=== PATIENT | female | born 1975 | race Caucasian/White ===

== ENCOUNTER 2017-12-07 14:08 | Emergency (ER) | payer MEDICAID ==
[~2017-12-07] VITALS: Ht 162.6 cm; Wt 81.0 kg
[~2017-12-07 14:08] MED LIST: ALB0.5UD IH; COM10T PO; DEPOPROVERA; LEVA15HF4 IH; SUMA25TA35 PO
[2017-12-07 14:14] VITALS: BP 120/79
[2017-12-07] MEDS ORDERED: DIPH-681 PO (15:37)
[2017-12-07] MEDS ORDERED: BENZ-16 PO (15:37)
[2017-12-07] MEDS ORDERED: ACTIFED PO (15:37)
[2017-12-07] MEDS ORDERED: AZIT500T5 PO (15:37)
== END 2017-12-07 15:52 | disposition home or self-care (01) ==
LOC: ER 14:09
DX: J06.9 Acute upper respiratory infection, unspecified (principal); G43.909 Migraine, unspecified, not intractable, without status migrainosus; J45.909 Unspecified asthma, uncomplicated; F17.200 Nicotine dependence, unspecified, uncomplicated; Z88.5 Allergy status to narcotic agent; Z56.0 Unemployment, unspecified; Z79.899 Other long term (current) drug therapy; Z98.890 Other specified postprocedural states
CPT/HCPCS: 99283

== ENCOUNTER 2018-05-02 11:36 | Emergency (ER) | payer MEDICAID ==
[~2018-05-02] VITALS: Ht 162.6 cm; Wt 77.3 kg
[~2018-05-02 11:36] MED LIST changes: +AZIT500T5 PO; +DIPH-681 PO
[2018-05-02] MEDS ORDERED: SUMAtriptan succ. 6 MG/0.5ml vial SQ ONE (13:35)
[2018-05-02] MEDS ORDERED: ondansetron 4mg rapidly disintigrating tab PO ONE (13:45)
[2018-05-02 14:44] VITALS: BP 134/84
== END 2018-05-02 14:45 | disposition home or self-care (01) ==
LOC: ER 11:37
DX: G43.909 Migraine, unspecified, not intractable, without status migrainosus (principal); J45.909 Unspecified asthma, uncomplicated; F17.200 Nicotine dependence, unspecified, uncomplicated; Z88.5 Allergy status to narcotic agent; Z79.899 Other long term (current) drug therapy; Z56.0 Unemployment, unspecified
CPT/HCPCS: 96372; 99283; J3030

== ENCOUNTER 2018-10-02 07:07 | Emergency (ER) | payer MEDICAID ==
[~2018-10-02] VITALS: Ht 162.6 cm; Wt 77.3 kg
[2018-10-02] MEDS ORDERED: piperacillin/tazo 3.375gm/50ml 50 ML IV ONE (07:15)
[2018-10-02] MEDS ORDERED: HYDROcodone/acetaminophen 10/325mg tab PO ONE (07:15)
[2018-10-02 07:56] LABS: BASOPHILS % (AUTO) 0.3 % (0-1); EOSINOPHILS # (AUTO) 0.1 X10'3 (0-0.9); EOSINOPHILS % (AUTO) 0.8 % (0-6); HEMATOCRIT 45.1 % (35.0-45.0); HEMOGLOBIN 14.9 g/dl (12.0-16.0); LYMPHOCYTES # (AUTO) 1.1 X10'3 (1.1-4.8); LYMPHOCYTES % (AUTO) 12.9 % (21-51); MEAN CORPUSCULAR HEMOGLOBIN 29.8 PG (27.0-31.0); MEAN CORPUSCULAR HGB CONC 33.1 g/dL (33.0-36.5); MEAN CORPUSCULAR VOLUME 90.2 FL (78-98); MEAN PLATELET VOLUME 8.6 FL (7.4-10.4); MONOCYTES # (AUTO) 0.3 X10'3 (0-0.9); MONOCYTES % (AUTO) 3.7 % (2-12); NEUTROPHILS # (AUTO) 6.9 X10'3 (1.8-7.7); NEUTROPHILS % (AUTO) 82.3 % (42-75); PLATELET COUNT 221 X10'3 (140-440); RED BLOOD COUNT 5.01 X10'6 (4.20-5.60); RED CELL DISTRIBUTION WIDTH 13.5 % (11.5-14.5); WHITE BLOOD COUNT 8.4 X10'3 (4.5-11.0)
[2018-10-02 08:03] LABS: ALANINE AMINOTRANSFERASE 44 U/L (12-78); ALBUMIN 3.7 G/DL (3.4-5.0); ALBUMIN/GLOBULIN RATIO 0.8 (1.1-1.5); ALKALINE PHOSPHATASE 77 IU/L (46-116); ANION GAP 14 (8-16); ASPARTATE AMINO TRANSFERASE 28 U/L (10-37); BILIRUBIN,TOTAL 0.3 MG/DL (0.1-1.0); BLOOD UREA NITROGEN 10 MG/DL (7-18); BUN/CREATININE RATIO 15.6 (6.6-38.0); CALCIUM 8.8 MG/DL (8.5-10.1); CHLORIDE 104 MMOL/L (99-107); CREATININE 0.64 MG/DL (0.40-0.90); GLUCOSE 113 MG/DL (70-104); SODIUM 141 MMOL/L (135-145); TOTAL CARBON DIOXIDE 22.8 MMOL/L (24-32); TOTAL PROTEIN 8.2 G/DL (6.4-8.2); eGFR > 90 ML/MIN
[2018-10-02 08:04] LABS: POTASSIUM 3.4 MMOL/L (3.5-5.1)
[2018-10-02] MEDS ORDERED: AMOX-422 PO (08:28)
[2018-10-02] MEDS ORDERED: HYDR-4353 PO (08:28)
[2018-10-02 08:52] VITALS: BP 144/98
== END 2018-10-02 08:54 | disposition home or self-care (01) ==
LOC: ER 07:08
DX: S62.021A Displaced fracture of middle third of navicular [scaphoid] bone of right wrist, initial encounter for closed fracture (principal); L08.9 Local infection of the skin and subcutaneous tissue, unspecified; G43.909 Migraine, unspecified, not intractable, without status migrainosus; J45.909 Unspecified asthma, uncomplicated; F17.200 Nicotine dependence, unspecified, uncomplicated; Z56.0 Unemployment, unspecified; Z98.890 Other specified postprocedural states; Z88.5 Allergy status to narcotic agent; Z79.899 Other long term (current) drug therapy; W22.01XA Walked into wall, initial encounter; Y93.89 Activity, other specified; Y92.89 Other specified places as the place of occurrence of the external cause; Y99.9 Unspecified external cause status
CPT/HCPCS: 29125; 36415; 73100; 73130; 80053; 85025; 96365; 99284; J2543

== ENCOUNTER 2018-10-11 08:40 | Emergency (ER) | payer MEDICAID ==
[~2018-10-11 08:40] MED LIST changes: +AMOX-422 PO; +HYDR-4353 PO
[2018-10-11 08:43] VITALS: BP 147/83
[2018-10-11] MEDS ORDERED: TETanus/Pertussis (Acell)/Diphther VAC/PF (Tdap-Adult) 0.5ml syringe IM ONE (09:25)
[2018-10-11] MEDS ORDERED: silver sulfadiazine cream 400gm jar TP SCH (09:25)
== END 2018-10-11 10:05 | disposition home or self-care (01) ==
LOC: ER 08:41
DX: S62.021D Displaced fracture of middle third of navicular [scaphoid] bone of right wrist, subsequent encounter for fracture with routine healing (principal); G43.909 Migraine, unspecified, not intractable, without status migrainosus; J45.909 Unspecified asthma, uncomplicated; F17.200 Nicotine dependence, unspecified, uncomplicated; Z56.0 Unemployment, unspecified; Z88.6 Allergy status to analgesic agent; X58.XXXD Exposure to other specified factors, subsequent encounter
CPT/HCPCS: 29125; 73130; 90471; 90715; 99284

== ENCOUNTER 2019-02-24 12:40 | Emergency (ER) | payer MEDICAID ==
[~2019-02-24] VITALS: Ht 162.6 cm; Wt 80.0 kg
[~2019-02-24 12:40] MED LIST changes: -AMOX-422 PO; -HYDR-4353 PO
[2019-02-24 12:48] VITALS: BP 141/90
[2019-02-24] MEDS ORDERED: CEPH-572 PO (13:38)
[2019-02-24] MEDS ORDERED: SULF1TAB49 PO (13:38)
== END 2019-02-24 14:04 | disposition home or self-care (01) ==
LOC: ER 12:41
DX: L02.11 Cutaneous abscess of neck (principal); L03.221 Cellulitis of neck; G43.909 Migraine, unspecified, not intractable, without status migrainosus; J45.909 Unspecified asthma, uncomplicated; Z86.2 Personal history of diseases of the blood and blood-forming organs and certain disorders involving the immune mechanism; Z98.890 Other specified postprocedural states; Z56.0 Unemployment, unspecified; Z88.5 Allergy status to narcotic agent; Z79.899 Other long term (current) drug therapy
CPT/HCPCS: 10060; 99283

== ENCOUNTER 2019-03-03 10:44 | Emergency (ER) | payer MEDICAID ==
[~2019-03-03] VITALS: Ht 162.6 cm; Wt 79.5 kg
[~2019-03-03 10:44] MED LIST changes: +CEPH-572 PO; +SULF1TAB49 PO
[2019-03-03 11:01] VITALS: BP 122/81
--- NOTE | 2019-03-03 12:46 | NUR ---
Pt seen, assessed, and treated by coty. Discharged instruction provided by myself.
== END 2019-03-03 12:52 | disposition home or self-care (01) ==
LOC: ER 10:45
DX: Z48.00 Encounter for change or removal of nonsurgical wound dressing (principal); L02.11 Cutaneous abscess of neck; G43.909 Migraine, unspecified, not intractable, without status migrainosus; J45.909 Unspecified asthma, uncomplicated; Z86.2 Personal history of diseases of the blood and blood-forming organs and certain disorders involving the immune mechanism; Z98.890 Other specified postprocedural states; Z56.0 Unemployment, unspecified; Z88.5 Allergy status to narcotic agent; Z79.899 Other long term (current) drug therapy
CPT/HCPCS: 99282

== ENCOUNTER 2020-01-28 15:34 | Emergency (ER) | payer MEDICAID ==
[~2020-01-28] VITALS: Ht 162.6 cm; Wt 68.1 kg
[~2020-01-28 15:34] MED LIST changes: -AZIT500T5 PO; +AZIT500T9 PO; -CEPH-572 PO; +DIPH25CA83 PO; -SULF1TAB49 PO
[2020-01-28 16:18] VITALS: BP 161/91
[2020-01-28] MEDS ORDERED: AMOX-419 PO (16:25)
== END 2020-01-28 16:33 | disposition home or self-care (01) ==
LOC: ER 15:35
DX: H66.91 Otitis media, unspecified, right ear (principal); J45.909 Unspecified asthma, uncomplicated; F17.200 Nicotine dependence, unspecified, uncomplicated; Z56.0 Unemployment, unspecified; Z98.890 Other specified postprocedural states; Z88.5 Allergy status to narcotic agent; Z79.2 Long term (current) use of antibiotics; Z79.899 Other long term (current) drug therapy
CPT/HCPCS: 99283

== ENCOUNTER 2020-06-09 12:16 | Emergency (ER) | payer MEDICAID ==
[~2020-06-09] VITALS: Ht 162.6 cm; Wt 89.4 kg
[2020-06-09] MEDS ORDERED: ibuprofen tablet 400 MG TABLET PO ONE (14:00)
[2020-06-09] MEDS ORDERED: ibuprofen 200mg tablet PO ONE (14:05)
[2020-06-09 14:15] VITALS: BP 136/87
== END 2020-06-09 14:17 | disposition home or self-care (01) ==
LOC: ER 12:17
DX: M79.671 Pain in right foot (principal); Z88.5 Allergy status to narcotic agent; Z79.899 Other long term (current) drug therapy
CPT/HCPCS: 73630; 99283

== ENCOUNTER 2020-06-16 11:37 | Emergency (ER) | payer MEDICAID ==
[~2020-06-16] VITALS: Ht 162.6 cm; Wt 86.5 kg
[2020-06-16] MEDS ORDERED: iohexol 300mg/ml 100ml inj. ONE (14:08)
[2020-06-16 14:26] LABS: BASOPHILS # (AUTO) 0.1 X10'3 (0-0.2); BASOPHILS % (AUTO) 0.6 % (0-1); EOSINOPHILS # (AUTO) 0.2 X10'3 (0-0.9); EOSINOPHILS % (AUTO) 1.7 % (0-6); HEMATOCRIT 40.1 % (35.0-45.0); HEMOGLOBIN 13.4 g/dl (12.0-16.0); LYMPHOCYTES # (AUTO) 2.1 X10'3 (1.1-4.8); MEAN CORPUSCULAR HEMOGLOBIN 29.7 PG (27.0-31.0); MEAN CORPUSCULAR HGB CONC 33.4 g/dL (33.0-36.5); MEAN CORPUSCULAR VOLUME 88.9 FL (78-98); MONOCYTES # (AUTO) 0.5 X10'3 (0-0.9); MONOCYTES % (AUTO) 5.3 % (2-12); NEUTROPHILS # (AUTO) 6.1 X10'3 (1.8-7.7); NEUTROPHILS % (AUTO) 68.4 % (42-75); PLATELET COUNT 246 X10'3 (140-440); RED BLOOD COUNT 4.51 X10'6 (4.20-5.60); RED CELL DISTRIBUTION WIDTH 13.5 % (11.5-14.5)
[2020-06-16 14:44] LABS: ALANINE AMINOTRANSFERASE 50 U/L (12-78); ALBUMIN 3.4 G/DL (3.4-5.0); ALBUMIN/GLOBULIN RATIO 0.7 (1.1-1.5); ALKALINE PHOSPHATASE 93 IU/L (46-116); ANION GAP 7 (8-16); ASPARTATE AMINO TRANSFERASE 29 U/L (10-37); BILIRUBIN,TOTAL 0.4 MG/DL (0.1-1.0); BLOOD UREA NITROGEN 8 MG/DL (7-18); BUN/CREATININE RATIO 13.1 (6.6-38.0); CALCIUM 9.2 MG/DL (8.5-10.1); CHLORIDE 102 MMOL/L (99-107); CREATININE 0.61 MG/DL (0.40-0.90); GLUCOSE 86 MG/DL (70-104); POTASSIUM 3.4 MMOL/L (3.5-5.1); SODIUM 137 MMOL/L (135-145); TOTAL CARBON DIOXIDE 27.9 MMOL/L (24-32); TOTAL PROTEIN 8.4 G/DL (6.4-8.2); eGFR > 90 ML/MIN
[2020-06-16 15:02] VITALS: BP 131/90
[2020-06-16] MEDS ORDERED: sulfamethoxazole/trimethoprim DS (800/160mg) tablet PO ONE (15:05)
[2020-06-16] MEDS ORDERED: cephalexin 250mg capsule PO ONE (15:05)
[2020-06-16] MEDS ORDERED: CEPH500C5 PO (15:15)
[2020-06-16] MEDS ORDERED: SULF1TAB49 PO (15:15)
[2020-06-16] MEDS ORDERED: IBUP-1985 PO (15:28)
== END 2020-06-16 15:32 | disposition home or self-care (01) ==
LOC: ER 11:37
DX: L03.90 Cellulitis, unspecified (principal); G43.909 Migraine, unspecified, not intractable, without status migrainosus; J45.909 Unspecified asthma, uncomplicated; D64.9 Anemia, unspecified; F17.200 Nicotine dependence, unspecified, uncomplicated; Z88.5 Allergy status to narcotic agent; Z79.899 Other long term (current) drug therapy
CPT/HCPCS: 36415; 80053; 84145; 85025; 99283; Q9967

== ENCOUNTER 2021-09-06 08:55 | Emergency (ER) | payer MEDICAID ==
[~2021-09-06] VITALS: Ht 172.7 cm; Wt 90.0 kg
[~2021-09-06 08:55] MED LIST changes: +IBUP-1985 PO
[2021-09-06 09:04] VITALS: BP 152/99
[2021-09-06] MEDS ORDERED: metoclopramide 5 mg/ml inj IM ONE (10:05)
[2021-09-06] MEDS ORDERED: METO5TAB85 PO (10:21)
--- NOTE | 2021-09-06 10:30 | NUR ---
PT SEEN, TREATED, DC BY PA IN TRIAGE
== END 2021-09-06 10:42 | disposition home or self-care (01) ==
LOC: ER 08:55
DX: G43.909 Migraine, unspecified, not intractable, without status migrainosus (principal); J45.909 Unspecified asthma, uncomplicated; F17.200 Nicotine dependence, unspecified, uncomplicated; Z86.2 Personal history of diseases of the blood and blood-forming organs and certain disorders involving the immune mechanism; Z56.0 Unemployment, unspecified; Z59.00 Homelessness unspecified; Z88.8 Allergy status to other drugs, medicaments and biological substances; Z79.2 Long term (current) use of antibiotics; Z79.899 Other long term (current) drug therapy
CPT/HCPCS: 96372; 99283; J2765

== ENCOUNTER 2022-10-04 13:25 | Emergency (ER) | payer MEDICAID ==
[~2022-10-04] VITALS: Ht 162.6 cm; Wt 65.9 kg
[~2022-10-04 13:25] MED LIST changes: +METO5TAB85 PO
[2022-10-04 14:13] VITALS: BP 129/96
[2022-10-04] MEDS ORDERED: CefTRIAXone 1000mg IM Kit (w/lidocaine diluent) IM ONE (18:50)
== END 2022-10-04 19:22 | disposition home or self-care (01) ==
LOC: ER 13:25
DX: H72.91 Unspecified perforation of tympanic membrane, right ear (principal); J20.9 Acute bronchitis, unspecified; F17.200 Nicotine dependence, unspecified, uncomplicated; G43.909 Migraine, unspecified, not intractable, without status migrainosus; J45.909 Unspecified asthma, uncomplicated; Z59.00 Homelessness unspecified; Z56.0 Unemployment, unspecified
CPT/HCPCS: 96372; 99283; J0696

== ENCOUNTER 2022-12-06 15:54 | Emergency (ER) | payer MEDICAID ==
[~2022-12-06] VITALS: Ht 162.6 cm; Wt 72.7 kg
[2022-12-06 16:56] VITALS: BP 145/96
[2022-12-06] MEDS ORDERED: ketorolac tromethamine 15mg/ml inj. IM ONE (19:30)
[2022-12-06] MEDS ORDERED: cyclobenzaprine 10mg tablet PO ONE (19:30)
[2022-12-06] MEDS ORDERED: CYCL-1 PO (19:33)
[2022-12-06] MEDS ORDERED: IBUP-1984 PO (19:33)
== END 2022-12-06 20:28 | disposition home or self-care (01) ==
LOC: ER 15:54
DX: M54.50 Low back pain, unspecified (principal); G43.909 Migraine, unspecified, not intractable, without status migrainosus; J45.909 Unspecified asthma, uncomplicated; Z88.5 Allergy status to narcotic agent; Z59.00 Homelessness unspecified; Z56.0 Unemployment, unspecified
CPT/HCPCS: 96372; 99283; J1885

== ENCOUNTER 2023-03-18 15:18 | Emergency (ER) | payer MEDICAID ==
[~2023-03-18] VITALS: Ht 162.6 cm; Wt 84.4 kg
[~2023-03-18 15:18] MED LIST changes: +CYCL-1 PO
[2023-03-18 15:35] VITALS: BP 126/64; PULSE 51; RESP 18; TEMP 98.2; O2SAT 96
[2023-03-18] MEDS ORDERED: IBUP-1985 PO (16:21)
[2023-03-18] MEDS ORDERED: ketorolac trometh inj. 60 MG/2 ML VIAL IM ONE (16:25)
== END 2023-03-18 16:57 | disposition home or self-care (01) ==
LOC: ER 15:19
DX: M79.671 Pain in right foot (principal); G43.909 Migraine, unspecified, not intractable, without status migrainosus; J45.909 Unspecified asthma, uncomplicated; Z88.5 Allergy status to narcotic agent; Z79.2 Long term (current) use of antibiotics; Z79.899 Other long term (current) drug therapy
CPT/HCPCS: 96372; 99284; J1885; A6449

== ENCOUNTER 2024-01-02 07:05 | Emergency (ER) | payer MEDICAID ==
[~2024-01-02] VITALS: Ht 162.6 cm; Wt 81.8 kg
[2024-01-02] MEDS ORDERED: CYCL-1 PO (11:24)
[2024-01-02] MEDS: cyclobenzaprine 10mg tablet PO ONE (11:48)
[2024-01-02] MEDS: ibuprofen tablet 400 MG TABLET PO ONE (11:49)
[2024-01-02 11:52] VITALS: BP 128/64; PULSE 84; RESP 15; TEMP 98.5; O2SAT 98
== END 2024-01-02 12:08 | disposition home or self-care (01) ==
LOC: ER 07:06
DX: G89.29 Other chronic pain (principal); M54.50 Low back pain, unspecified; G43.909 Migraine, unspecified, not intractable, without status migrainosus; J45.909 Unspecified asthma, uncomplicated; F17.200 Nicotine dependence, unspecified, uncomplicated; Z88.5 Allergy status to narcotic agent; Z79.899 Other long term (current) drug therapy; Z79.2 Long term (current) use of antibiotics
CPT/HCPCS: 99283

== ENCOUNTER 2024-07-28 15:17 | Emergency (ER) | payer MEDICAID ==
[~2024-07-28] VITALS: Ht 162.6 cm; Wt 95.9 kg
[~2024-07-28 15:17] MED LIST changes: +CIPR7.5D7 RIGHT EAR
[2024-07-28 15:20] VITALS: TEMP 98.1
[2024-07-28] MEDS ORDERED: ALBU8HFA INH (15:51)
[2024-07-28] MEDS ORDERED: BENZ-38 PO (15:51)
[2024-07-28] MEDS ORDERED: AZIT250T83 PO (15:51)
[2024-07-28 16:12] VITALS: BP 144/89; PULSE 104; RESP 17; O2SAT 97
== END 2024-07-28 16:14 | disposition home or self-care (01) ==
LOC: ER 15:19
DX: J22 Unspecified acute lower respiratory infection (principal); J45.909 Unspecified asthma, uncomplicated; I10 Essential (primary) hypertension; G43.909 Migraine, unspecified, not intractable, without status migrainosus; D64.9 Anemia, unspecified; G89.29 Other chronic pain; M54.9 Dorsalgia, unspecified; Z90.89 Acquired absence of other organs; Z98.890 Other specified postprocedural states; Z56.0 Unemployment, unspecified; Z88.5 Allergy status to narcotic agent; Z79.1 Long term (current) use of non-steroidal anti-inflammatories (NSAID); Z79.899 Other long term (current) drug therapy
CPT/HCPCS: 71045; 99284